=== PATIENT | female | born 1985 | race Caucasian/White ===

== ENCOUNTER → 2017-02-05 | Outpatient (CLI) | payer OTHER ==
[~2017-02-05] MED LIST: DOCU-30 PO; IBUP200T48 PO; OXYC-302 PO
== END | disposition home or self-care (01) ==
LOC: CFH 13:57
PROVIDERS: ATTEND Obstetrics & Gynecology
DX: N63 Unspecified lump in breast (principal)
CPT/HCPCS: 76641; G0204

== ENCOUNTER 2018-03-14 10:18 | Day surgery (SDC) | payer OTHER ==
[~2018-03-14] VITALS: Ht 175.3 cm; Wt 78.7 kg
[~2018-03-14 10:18] MED LIST changes: +DOCU-131 PO; -DOCU-30 PO; -IBUP200T48 PO; +IBUP200T49 PO
[2018-03-14] MEDS ORDERED: LACTATED RINGERS 1,000 ML IV SCH (11:44)
[2018-03-14] MEDS ORDERED: LIDOCAINE-MPF 1%, 2ML ONE (11:49)
[2018-03-14 11:51] VITALS: BP 108/70
[2018-03-14] MEDS ORDERED: ONDANSETRON ODT 8 MG PO ONE (12:00)
[2018-03-14] MEDS ORDERED: LIDOCAINE-MPF 1%, 2ML INFIL ONE (12:00)
[2018-03-14] MEDS ORDERED: FAMOTIDINE 20 MG TABLET PO ONE (12:00)
[2018-03-14] MEDS ORDERED: ACETAMINOPHEN 500 MG TABLET PO ONE (12:00)
[2018-03-14] MEDS ORDERED: PLEASE ENTER HEIGHT AND WEIGHT MC SCH (12:00)
[2018-03-14] MEDS ORDERED: OxyconTIN ER 10 MG TAB.ER PO ONE (12:00)
[2018-03-14] MEDS ORDERED: MISOPROSTOL 200 MCG TABLET ONE (12:29)
[2018-03-14] MEDS ORDERED: OXYTOCIN 10 UNITS/ML, 1ML ONE (12:29)
[2018-03-14] MEDS ORDERED: METHYLERGONOVINE 0.2 MG/ML IM ONE (12:29)
[2018-03-14] MEDS ORDERED: SILVER NITRATE STICK TP ONE (12:30)
[2018-03-14] MEDS ORDERED: MIDAZOLAM 1 MG/ML, 2ML ONE (12:57)
[2018-03-14] MEDS ORDERED: FENTANYL PF 100 MCG/2ML ONE (12:57)
[2018-03-14] MEDS ORDERED: CEFAZOLIN 1,000 MG ONE (13:01)
[2018-03-14] MEDS ORDERED: PROPOFOL 10 MG/ML, 20ML ONE (13:01)
[2018-03-14] MEDS ORDERED: DEXAMETHASONE 4 MG/ML, 1ML ONE (13:01)
[2018-03-14] MEDS ORDERED: KETOROLAC 30 MG/1 ML ONE (13:53)
[2018-03-14] MEDS ORDERED: OXYcodone 5 MG/5 ML ORAL.SOL UDC PO PRN (14:00)
[2018-03-14] MEDS ORDERED: ACETAMINOPHEN 325 MG TABLET PO PRN (14:00)
[2018-03-14] MEDS ORDERED: MORPHINE SULFATE 4 MG/ML, 1ML IVPush PRN (14:00)
[2018-03-14] MEDS ORDERED: KETOROLAC 30 MG/1 ML IVPush ONE (14:00)
[2018-03-14] MEDS ORDERED: PROMETHAZINE 25 MG/ML, 1ML IV PRN (14:00)
[2018-03-14] MEDS ORDERED: ONDANSETRON ODT 8 MG PO PRN (14:00)
[2018-03-14] MEDS ORDERED: FENTANYL PF 100 MCG/2ML IV PRN (14:00)
== END 2018-03-14 15:45 ==
LOC: OUT 10:18
PROVIDERS: ATTEND Obstetrics & Gynecology
DX: O02.1 Missed abortion (principal); Z3A.01 Less than 8 weeks gestation of pregnancy; Z98.890 Other specified postprocedural states
CPT/HCPCS: 88305; J0690; J1100; J1885; J2250; J2704; J3010; J3490; Q0162; J2210; J2590; J7120

== ENCOUNTER 2019-02-04 20:13 | Outpatient (CLI) | payer OTHER ==
[~2019-02-04] VITALS: Ht 175.3 cm; Wt 90.9 kg
[2019-02-04 20:40] VITALS: BP 113/65
[2019-02-04] MEDS ORDERED: PREN1TAB60 PO (20:48)
[2019-02-04 21:00] LABS: MICROSCOPIC AUTO
== END 2019-02-04 23:11 | disposition home or self-care (01) ==
LOC: LDOP 20:13
PROVIDERS: ATTEND Obstetrics & Gynecology
DX: O42.913 Preterm premature rupture of membranes, unspecified as to length of time between rupture and onset of labor, third trimester (principal); Z3A.28 28 weeks gestation of pregnancy
CPT/HCPCS: 59025; 76815; 81001; 84112; 87086; 89060; 99211; G0463; Q0114

== ENCOUNTER 2019-04-21 10:17 | Inpatient (IN) | payer OTHER ==
[~2019-04-21] VITALS: Ht 175.3 cm; Wt 97.7 kg
[~2019-04-21 10:17] MED LIST changes: +PREN1TAB60 PO
[2019-04-21] MEDS: LACTATED RINGERS 1,000 ML IV SCH ×6 (10:22→22:16)
[2019-04-21] MEDS ORDERED: LACTATED RINGERS 1,000 ML IVBOLUS ONE (10:30)
[2019-04-21] MEDS ORDERED: SODIUM CITRATE/CITRIC ACID 15 ML UDC PO ONE (10:30)
[2019-04-21 10:35] VITALS: BP 127/65
[2019-04-21] MEDS ORDERED: SODIUM CITRATE/CITRIC ACID 15 ML UDC ONE ×2 (10:50→10:51)
[2019-04-21] MEDS ORDERED: NEWBORN KIT ONE (10:50)
[2019-04-21] MEDS ORDERED: OXYTOCIN 30U/ 0.9% NaCL 500ML 500 ML ONE (10:51)
[2019-04-21] MEDS ORDERED: METOCLOPRAMIDE 5 MG/ML, 2ML ONE (10:51)
[2019-04-21] MEDS ORDERED: METOCLOPRAMIDE 5 MG/ML, 2ML IVPush ONE (11:00)
[2019-04-21 11:02] LABS: BASOPHILS # (AUTO) 0.01 x10^3/uL (0-0.1); BASOPHILS % (AUTO) 0 % (0-1); EOSINOPHILS # (AUTO) 0.12 x10^3/uL (0-0.4); EOSINOPHILS % (AUTO) 1 % (1-7); LYMPHOCYTES # (AUTO) 1.38 x10^3/uL (1-3.4); LYMPHOCYTES % (AUTO) 13 % (22-44); MD NO; MEAN CORPUSCULAR HEMOGLOBIN 31.4 pg (27.0-34.8); MEAN CORPUSCULAR HGB CONC 33.6 g/dL (32.4-35.8); MEAN CORPUSCULAR VOLUME 93.4 fL (80-100); MEAN PLATELET VOLUME 8.9 fL (7.4-10.4); MONOCYTES # (AUTO) 0.58 x10^3/uL (0.2-0.8); MONOCYTES % (AUTO) 6 % (2-9); NEUTROPHILS # (AUTO) 8.24 x10^3/uL (1.8-6.8); NEUTROPHILS % (AUTO) 80 % (42-75); PLATELET COUNT 202 x10^3/uL (130-400); RED BLOOD COUNT 4.13 x10^6/uL (3.82-5.3); RED CELL DISTRIBUTION WIDTH 13.4 % (9.6-15.2)
[2019-04-21] MEDS ORDERED: ONDANSETRON 2MG/ML, 2ML ONE (11:40)
[2019-04-21] MEDS ORDERED: OXYTOCIN 10 UNITS/ML, 1ML ONE (11:40)
[2019-04-21] MEDS ORDERED: CEFAZOLIN 1,000 MG ONE (11:40)
[2019-04-21] MEDS ORDERED: FENTANYL PF 100 MCG/2ML ONE (11:40)
[2019-04-21] MEDS ORDERED: HYDROmorphone 2 MG/ML, 1ML ONE (11:40)
[2019-04-21] MEDS ORDERED: SODIUM CHLORIDE 0.9% PF 10ML ONE (11:41)
[2019-04-21] MEDS ORDERED: ONDANSETRON 2MG/ML, 2ML IV PRN (12:30)
[2019-04-21] MEDS ORDERED: ACETAMINOPHEN 325 MG TABLET PO PRN ×2 (12:30)
[2019-04-21] MEDS ORDERED: MORPHINE SULFATE 4 MG/ML, 1ML IVPush PRN (12:30)
[2019-04-21] MEDS ORDERED: OXYcodone/APAP 5/325MG TABLET PO PRN (12:30)
[2019-04-21] MEDS ORDERED: MEASLES,MUMPS&RUBELLA VACC/PF 0.5 ML SQ-VACC PRN (12:30)
[2019-04-21] MEDS ORDERED: SIMETHICONE 80 MG CHEW TAB PO PRN (12:30)
[2019-04-21] MEDS ORDERED: morphine SULFATE 10 MG/ML, 1ML IM PRN (12:30)
[2019-04-21] MEDS ORDERED: CALCIUM CARBONATE 500 MG TAB.CHEW PO PRN (12:30)
[2019-04-21] MEDS ORDERED: DIPH,PERTUSS(ACELL),TET VAC/PF NC IM-VACC PRN (12:30)
[2019-04-21] MEDS ORDERED: MISOPROSTOL 200 MCG TABLET PR PRN (12:30)
[2019-04-21] MEDS ORDERED: RHOGAM FROM BLOOD BANK 1 NOTE EA IM/IV ONE (12:30)
[2019-04-21] MEDS ORDERED: EPHEDRINE 50 MG/ML, 1ML ONE (12:53)
[2019-04-21] MEDS ORDERED: DEXAMETHASONE 4 MG/ML, 1ML ONE (13:20)
[2019-04-21] MEDS ORDERED: KETOROLAC 30 MG/1 ML ONE (13:28)
[2019-04-21] MEDS: KETOROLAC 30 MG/1 ML IV SCH ×2 (13:30→19:33)
[2019-04-21] MEDS: OXYTOCIN 30U/ 0.9% NaCL 500ML 500 ML IV SCH ×2 (13:53→22:16)
[2019-04-21 15:50] VITALS: BP 116/73
[2019-04-21] MEDS: OXYcodone/APAP 5/325MG TABLET PO PRN ×2 (17:22→21:50)
[2019-04-21 19:40] VITALS: BP 117/66
[2019-04-22 00:02] VITALS: BP 101/61
[2019-04-22] MEDS: OXYcodone/APAP 5/325MG TABLET PO PRN ×6 (01:43→21:55)
[2019-04-22] MEDS: KETOROLAC 30 MG/1 ML IV SCH ×5 (01:43→19:30)
[2019-04-22] MEDS: LACTATED RINGERS 1,000 ML IV SCH ×5 (04:16→20:16)
[2019-04-22 05:15] VITALS: BP 95/57
[2019-04-22 05:39] LABS: BASOPHILS # (AUTO) 0.04 x10^3/uL (0-0.1); BASOPHILS % (AUTO) 0 % (0-1); EOSINOPHILS # (AUTO) 0.03 x10^3/uL (0-0.4); EOSINOPHILS % (AUTO) 0 % (1-7); LYMPHOCYTES # (AUTO) 1.73 x10^3/uL (1-3.4); LYMPHOCYTES % (AUTO) 13 % (22-44); MD NO; MEAN CORPUSCULAR HEMOGLOBIN 30.8 pg (27.0-34.8); MEAN CORPUSCULAR HGB CONC 32.8 g/dL (32.4-35.8); MEAN CORPUSCULAR VOLUME 93.8 fL (80-100); MEAN PLATELET VOLUME 8.7 fL (7.4-10.4); MONOCYTES # (AUTO) 0.78 x10^3/uL (0.2-0.8); MONOCYTES % (AUTO) 6 % (2-9); NEUTROPHILS % (AUTO) 81 % (42-75); PLATELET COUNT 176 x10^3/uL (130-400); RED BLOOD COUNT 3.45 x10^6/uL (3.82-5.3); RED CELL DISTRIBUTION WIDTH 13.9 % (9.6-15.2)
[2019-04-22] MEDS: DOCUSATE 100 MG CAPSULE PO PRN ×2 (07:41→21:55)
[2019-04-22] MEDS: PRENATAL VIT/IRON/FA 1 EACH TABLET PO SCH (07:41)
[2019-04-22 08:00] VITALS: BP 99/63
[2019-04-22] MEDS: OXYTOCIN 30U/ 0.9% NaCL 500ML 500 ML IV SCH ×2 (08:16→18:16)
[2019-04-22 19:20] VITALS: BP 109/71
[2019-04-22] MEDS ORDERED: IBUPROFEN 600 MG TABLET ONE (19:35)
[2019-04-22] MEDS: IBUPROFEN 600 MG TABLET PO PRN (19:36)
[2019-04-23] MEDS ORDERED: IBUPROFEN 600 MG TABLET ONE ×2 (01:48→08:18)
[2019-04-23] MEDS: IBUPROFEN 600 MG TABLET PO PRN ×2 (01:51→08:22)
[2019-04-23] MEDS: OXYcodone/APAP 5/325MG TABLET PO PRN ×3 (01:51→11:54)
[2019-04-23 08:00] VITALS: BP 105/69
[2019-04-23] MEDS: PRENATAL VIT/IRON/FA 1 EACH TABLET PO SCH (08:22)
[2019-04-23] MEDS: DOCUSATE 100 MG CAPSULE PO PRN (08:22)
[2019-04-23] MEDS ORDERED: IBUP-1222 PO (09:07)
[2019-04-23] MEDS ORDERED: OXYC-302 PO (09:07)
== END 2019-04-23 13:11 | disposition home or self-care (01) | DRG 785 ==
LOC: LDIP 10:17 → 2NW 15:21
PROVIDERS: ADMIT Obstetrics & Gynecology; ATTEND Obstetrics & Gynecology
PROC: 10D00Z1 Extraction of Products of Conception, Low, Open Approach (ICD-10-PCS; principal; 2019-04-21)
PROC: 0UB70ZZ Excision of Bilateral Fallopian Tubes, Open Approach (ICD-10-PCS; 2019-04-21)
DX: O34.211 Maternal care for low transverse scar from previous cesarean delivery (principal); O26.893 Other specified pregnancy related conditions, third trimester; Z3A.39 39 weeks gestation of pregnancy; Z37.0 Single live birth; O32.1XX0 Maternal care for breech presentation, not applicable or unspecified; Z67.91 Unspecified blood type, Rh negative
CPT/HCPCS: 36415; 85025; 86850; 86900; 88302; G0378; J0690; J1100; J1170; J1885; J2405; J3010; J2590; J2765; J7120